=== PATIENT | female | born 1940 | race Asian ===

== ENCOUNTER 2021-08-11 16:26 | Emergency (ER) | payer MEDICARE, OTHER ==
[~2021-08-11] VITALS: Ht 154.9 cm; Wt 70.9 kg
[~2021-08-11 16:26] MED LIST: AMLO1TAB99 PO; ASPI-1444 PO; HYDR25TA2 PO
[2021-08-11 16:33] VITALS: BP 159/88
== END 2021-08-11 17:37 | disposition home or self-care (01) ==
LOC: EMS 16:30
DX: B01.9 Varicella without complication (principal); I10 Essential (primary) hypertension; Z79.899 Other long term (current) drug therapy
CPT/HCPCS: 99283